=== PATIENT | female | born 1960 | race Caucasian/White ===

== ENCOUNTER → 2016-12-06 | Outpatient (CLI) | payer BC, OTHER ==
[~2016-12-06] MED LIST: /PRAV20TA OR; ATIV1TAB2 OR; DILTIAZEM OR; DYAZ37.5 OR; LEVOTHROID OR; NABU500T OR; NEUR300C OR; NIAS500T2 OR; NITRO PATCH TD; PAIN325T OR; RANO5TAB OR; VICO5TAB OR; VITAMIN D50000 UNT OR
[2016-12-06 07:58] LABS: FREE T4 1.21 NG/DL (0.76-1.46)
== END ==
LOC: M LAB 06:42
PROVIDERS: ATTEND Internal Medicine Endocrinology, Diabetes & Metabolism
DX: E89.0 Postprocedural hypothyroidism (principal)

== ENCOUNTER → 2017-02-14 | Outpatient (REF) | payer OTHER ==
[2017-02-14 13:34] LABS: FREE T4 1.16 NG/DL (0.76-1.46)
== END ==
LOC: M LABDRAWP 12:16
PROVIDERS: ATTEND Nurse Practitioner Family
DX: E89.0 Postprocedural hypothyroidism (principal)

== ENCOUNTER → 2017-02-14 | Outpatient (REF) | payer OTHER ==
[2017-02-14 11:58] LABS: MEAN CORPUSCULAR HEMOGLOBIN 29.5 pg (27.0-33.0); MEAN CORPUSCULAR HGB CONC 32.8 g/dl (32.0-36.5); RED CELL DISTRIBUTION WIDTH 13.2 % (11.5-14.5); RETIC HEMOGLOBIN EQUIVALENT 35.7 pg (24-36); RETICULOCYTE % 1.2 % (0.5-1.5)
[2017-02-14 12:54] LABS: ALBUMIN 4.1 GM/DL (3.2-5.2); ALBUMIN/GLOBULIN RATIO 1.24 (1.00-1.93); ALKALINE PHOSPHATASE 59 U/L (45-117); ALT/SGPT 23 U/L (12-78); ANION GAP 7 MEQ/L (8-16); AST/SGOT 8 U/L (15-37); BILIRUBIN,TOTAL 0.6 MG/DL (0.2-1.0); BLOOD UREA NITROGEN 11 MG/DL (7-18); CALCIUM LEVEL 9.3 MG/DL (8.5-10.1); CARBON DIOXIDE LEVEL 32 MEQ/L (21-32); CHLORIDE LEVEL 103 MEQ/L (98-107); CHOLESTEROL LEVEL 267 MG/DL (<200); CREATININE FOR GFR 0.88 MG/DL (0.55-1.02); FERRITIN 107 NG/ML (8-252); FREE T4 1.15 NG/DL (0.76-1.46); GLOMERULAR FILTRATION RATE > 60.0 (>51); GLUCOSE, FASTING 92 MG/DL (70-105); PERCENT SATURATION 31.9 % (13.2-45.0); POTASSIUM SERUM 4.3 MEQ/L (3.5-5.1); SODIUM LEVEL 142 MEQ/L (136-145); TOTAL IRON BINDING CAPACITY 367 UG/DL (250-450); TOTAL PROTEIN 7.4 GM/DL (6.4-8.2); TRIGLYCERIDES LEVEL 157 MG/DL (<150)
== END ==
LOC: M SFHCPLAZ 08:45
PROVIDERS: ATTEND Family Medicine
DX: D50.9 Iron deficiency anemia, unspecified (principal); I73.9 Peripheral vascular disease, unspecified; I25.9 Chronic ischemic heart disease, unspecified; E89.0 Postprocedural hypothyroidism; E55.9 Vitamin D deficiency, unspecified

== ENCOUNTER → 2017-06-14 | Outpatient (REF) | payer OTHER | LOC: M SFHCPLAZ 08:58 | DX: R59.0 Localized enlarged lymph nodes (principal); Z53.9 Procedure and treatment not carried out, unspecified reason ==

== ENCOUNTER → 2017-06-21 | Outpatient (REF) | payer OTHER ==
[2017-06-21 16:31] LABS: BASO % 0.3 % (0.0-1.0); EOS # 0.1 10^3/uL (0.0-0.50); EOS % 1.2 % (0.0-3.0); HEMATOCRIT 39.8 % (36.0-47.0); HEMOGLOBIN 13.5 g/dl (12.0-16.0); IMMATURE GRANULOCYTE % 0.2 % (0-3.0); LYMPH # 2.4 10^3/uL (1.5-4.5); LYMPH % 36.7 % (24.0-44.0); MEAN CORPUSCULAR HEMOGLOBIN 29.9 pg (27.0-33.0); MEAN CORPUSCULAR HGB CONC 33.9 g/dl (32.0-36.5); MEAN CORPUSCULAR VOLUME 88.2 fl (80.0-96.0); MONO # 0.4 10^3/uL (0.0-0.8); MONO % 5.6 % (0.0-5.0); NEUTROPHILS # 3.7 10^3/uL (1.8-7.7); PLATELET COUNT, AUTOMATED 222 10^3/uL (150-450); RED BLOOD COUNT 4.51 10^6/uL (4.00-5.40); RED CELL DISTRIBUTION WIDTH 12.8 % (11.5-14.5); WHITE BLOOD COUNT 6.6 10^3/uL (4.0-10.0)
[2017-06-21 16:37] LABS: ANION GAP 5 MEQ/L (8-16); BLOOD UREA NITROGEN 14 MG/DL (7-18); CALCIUM LEVEL 8.9 MG/DL (8.5-10.1); CARBON DIOXIDE LEVEL 31 MEQ/L (21-32); CHLORIDE LEVEL 104 MEQ/L (98-107); CREATININE FOR GFR 0.83 MG/DL (0.55-1.30); GLOMERULAR FILTRATION RATE > 60.0 (>51); GLUCOSE, FASTING 103 MG/DL (70-100); POTASSIUM SERUM 3.7 MEQ/L (3.5-5.1); SODIUM LEVEL 140 MEQ/L (136-145)
== END ==
LOC: M LABDRAW1 15:44
DX: R59.0 Localized enlarged lymph nodes (principal)

== ENCOUNTER → 2017-06-28 | Outpatient (CLI) | payer BC, OTHER ==
[~2017-06-28] MED LIST changes: -/PRAV20TA OR; -ATIV1TAB2 OR; -DILTIAZEM OR; -DYAZ37.5 OR; +ISOVUE-370 76% 100ML VIAL (Q9967) As Ordered; -LEVOTHROID OR; -NABU500T OR; -NEUR300C OR; -NIAS500T2 OR; -NITRO PATCH TD; -PAIN325T OR; -RANO5TAB OR; -VICO5TAB OR; -VITAMIN D50000 UNT OR
== END ==
LOC: M RAD 07:29
DX: R59.0 Localized enlarged lymph nodes (principal); D48.7 Neoplasm of uncertain behavior of other specified sites
CPT/HCPCS: Q9967

== ENCOUNTER → 2017-07-17 | Outpatient (CLI) | payer BC, OTHER ==
[2017-07-17 16:21] LABS: INR 0.95; PROTHROMBIN TIME 12.8 SECONDS (12.4-14.5)
[2017-07-17 16:22] LABS: PARTIAL THROMBOPLASTIN TIME 27.4 SECONDS (26.8-37.9)
== END ==
LOC: M LAB 15:38
DX: D37.030 Neoplasm of uncertain behavior of the parotid salivary glands (principal)
CPT/HCPCS: 85610

== ENCOUNTER → 2017-07-22 | Outpatient (CLI) | payer BC, OTHER ==
[~2017-07-22] MED LIST changes: -ISOVUE-370 76% 100ML VIAL (Q9967) As Ordered; +LIDOCAINE 1% MDV 20ML VIAL As Ordered
== END ==
LOC: M RADPRO 13:29
DX: D37.030 Neoplasm of uncertain behavior of the parotid salivary glands (principal); K11.23 Chronic sialoadenitis; Z88.2 Allergy status to sulfonamides; Z79.82 Long term (current) use of aspirin; Z79.899 Other long term (current) drug therapy
CPT/HCPCS: 42400

== ENCOUNTER → 2017-08-24 | Outpatient (REF) | payer OTHER ==
[2017-08-24 19:30] LABS: APPEARANCE, URINE CLOUDY (CLEAR); BACTERIA, URINE AUTO 3+ (NEGATIVE); BILIRUBIN, URINE AUTO NEGATIVE (NEGATIVE); BLOOD, URINE BLOOD 3+ (NEGATIVE); COLOR, URINE RED (YELLOW); GLUCOSE, URINE (UA) AUTO NEGATIVE (NEGATIVE); KETONE, URINE AUTO NEGATIVE (NEGATIVE); LEUKOCYTE ESTERASE, URINE AUTO 3+ (NEGATIVE); NITRITE, URINE AUTO NEGATIVE (NEGATIVE); PROTEIN, URINE AUTO 2+ mg/dL (NEGATIVE); RBC, URINE AUTO TNTC /HPF (0-3); SPECIFIC GRAVITY URINE AUTO 1.012 (1.002-1.035); SQUAMOUS EPITHELIAL CELL UR AU 0 /HPF (0-6); UROBILINOGEN, URINE AUTO 0.2 mg/dL (0.0-2.0); WBC, URINE AUTO TNTC /HPF (0-3)
== END ==
LOC: M LAB REF 09:17
DX: N39.0 Urinary tract infection, site not specified (principal)

== ENCOUNTER → 2017-12-24 | Outpatient (CLI) | payer BC, OTHER ==
[2017-12-24 07:21] LABS: FREE T4 1.13 NG/DL (0.76-1.46)
== END ==
LOC: M LAB 06:13
DX: E89.0 Postprocedural hypothyroidism (principal)
CPT/HCPCS: 84443

== ENCOUNTER → 2018-03-19 | Outpatient (CLI) | payer BC, OTHER | LOC: M RAD 11:48 | DX: K11.9 Disease of salivary gland, unspecified (principal) | CPT/HCPCS: 76536 ==

== ENCOUNTER → 2018-04-11 | Outpatient (REF) | payer OTHER ==
[2018-04-11 12:51] LABS: ERYTHROCYTE SEDIMENTATION RATE 5 mm/hr (0-30)
[2018-04-11 12:54] LABS: C REACTIVE PROTEIN QUANTITATIV < 0.30 MG/DL (0.00-0.30); RHEUMATOID FACTOR QUANT < 10.0 IU/ML (<15.0); TOTAL PROTEIN 7.5 GM/DL (6.4-8.2)
[2018-04-11 12:54] LABS: COMPLEMENT C4 25 MG/DL (10-40)
[2018-04-12 10:49] LABS: CRYOGLOBULINS NEGATIVE (NEGATIVE)
[2018-04-15 11:35] LABS: ALBUMIN 4.62 GM/DL (3.29-5.55); ALBUMIN % 61.6 % (55.8-66.1); ALPHA-1-GLOBULIN % 3.5 % (2.9-4.9); ALPHA-2-GLOBULINS % 10.1 % (7.1-11.8); BETA-1-GLOBULINS % 6.9 % (4.7-7.2); BETA-2-GLOBULINS % 5.1 % (3.2-6.5); GAMMA GLOBULIN % 12.8 % (11.1-18.8)
[2018-04-15 11:36] LABS: ALPHA-1-GLOBULINS 0.26 GM/DL (0.17-0.41); ALPHA-2-GLOBULINS 0.76 GM/DL (0.42-0.99); BETA-1-GLOBULINS 0.52 GM/DL (0.28-0.60); BETA-2-GLOBULINS 0.38 GM/DL (0.19-0.55); GAMMA GLOBULINS 0.96 GM/DL (0.65-1.58)
== END ==
LOC: M SFHCPLAZ 10:37
DX: M35.00 Sjogren syndrome, unspecified (principal)
CPT/HCPCS: 82595

== ENCOUNTER → 2018-09-08 | Outpatient (CLI) | payer BC, OTHER ==
[~2018-09-08] MED LIST changes: +ATIV1TAB2 OR; +DILTIAZEM OR; +DYAZ37.5 OR; +LEVOTHROID OR; -LIDOCAINE 1% MDV 20ML VIAL As Ordered; +NABU500T OR; +NEUR300C OR; +NIAS500T2 OR; +NITRO PATCH TD; +PAIN325T OR; +PRAV1TAB39 OR; +RANO5TAB OR; +VICO5TAB OR; +VITAMIN D50000 UNT OR
[2018-09-08 07:39] LABS: THYROID STIMULATING HORMONE 3.28 uIU/ML (0.358-3.740)
== END ==
LOC: M LAB 06:36
PROVIDERS: ATTEND Nurse Practitioner Family
DX: E89.0 Postprocedural hypothyroidism (principal)

== ENCOUNTER → 2018-09-29 | Outpatient (CLI) | payer BC, OTHER ==
--- NOTE | 2018-09-30 09:59 | REP ---
Clinical: Follow up parotid mass. Technique: Real time vicente scale and color evaluation using linear high frequency transducer. Findings: Hypoechoic 9.4 x 7.5 x 9.1 mm mass in the mid right parotid gland is considerably decreased from prior examination (previously measuring 18 x 14 x 15 mm). A 4.4 x 4.3 x 5.3 millimeter subtle lesion inferior to the larger lesion is again noted and the previously identified small parotid cyst has resolved. The left parotid gland is unchanged with a small 7 x 8 x 4 mm hyperechoic nodule with hypoechoic rim again identified and unchanged possibly representing small lymph node. Impression: 1. Complex hypoechoic lesion in the right parotid gland is decreased in size from prior examination. Remainder of the bilateral nodules remain essentially unchanged while the previously identified small right parotid cyst has resolved. Electronically Signed by Dave Quezada MD 09/30/2018 09:51 A
== END ==
LOC: M RAD 09:44
PROVIDERS: ATTEND Otolaryngology
DX: K11.9 Disease of salivary gland, unspecified (principal)

== ENCOUNTER → 2018-10-03 | Outpatient (CLI) | payer BC, OTHER ==
[2018-10-03 08:50] LABS: ALBUMIN 4.1 GM/DL (3.2-5.2); ALT/SGPT 26 U/L (12-78); BILIRUBIN,TOTAL 0.5 MG/DL (0.2-1.0); BLOOD UREA NITROGEN 16 MG/DL (7-18); CALCIUM LEVEL 9.5 MG/DL (8.5-10.1); CARBON DIOXIDE LEVEL 30 MEQ/L (21-32); CHLORIDE LEVEL 104 MEQ/L (98-107); CHOLESTEROL LEVEL 231 MG/DL (<200); CHOLESTEROL RISK RATIO 4.714 (<5); CREATININE FOR GFR 0.84 MG/DL (0.55-1.30); GLOMERULAR FILTRATION RATE > 60.0 (>51); GLUCOSE, FASTING 91 MG/DL (70-100); HDL CHOLESTEROL 49 MG/DL (>40); LDL CHOLESTEROL 151 MG/DL (<100); NON-HDL-C 182 MG/DL; POTASSIUM SERUM 4.1 MEQ/L (3.5-5.1); SODIUM LEVEL 141 MEQ/L (136-145); TOTAL PROTEIN 6.8 GM/DL (6.4-8.2); TRIGLYCERIDES LEVEL 155 MG/DL (<150)
== END ==
LOC: M LAB 06:55
PROVIDERS: ATTEND Internal Medicine Cardiovascular Disease
DX: I20.8 Other forms of angina pectoris (principal); E78.5 Hyperlipidemia, unspecified

== ENCOUNTER → 2019-04-07 | Outpatient (REF) | payer OTHER ==
[2019-04-07 12:43] LABS: HEMATOCRIT 44.7 % (36.0-47.0); HEMOGLOBIN 14.4 g/dl (12.0-15.5); MEAN CORPUSCULAR HGB CONC 32.2 g/dl (32.0-36.5); MEAN CORPUSCULAR VOLUME 93.1 fl (80.0-96.0); PLATELET COUNT, AUTOMATED 204 10^3/uL (150-450); WHITE BLOOD COUNT 5.8 10^3/uL (4.0-10.0)
[2019-04-07 12:53] LABS: ALBUMIN 4.1 GM/DL (3.2-5.2); ALT/SGPT 34 U/L (12-78); BILIRUBIN,TOTAL 0.5 MG/DL (0.2-1.0); BLOOD UREA NITROGEN 9 MG/DL (7-18); C REACTIVE PROTEIN QUANTITATIV < 0.30 MG/DL (0.00-0.30); CALCIUM LEVEL 8.7 MG/DL (8.5-10.1); CARBON DIOXIDE LEVEL 31 MEQ/L (21-32); CHLORIDE LEVEL 105 MEQ/L (98-107); CHOLESTEROL LEVEL 201 MG/DL (<200); CREATININE FOR GFR 0.75 MG/DL (0.55-1.30); FERRITIN 61 NG/ML (8-252); FREE T4 0.94 NG/DL (0.76-1.46); GLOMERULAR FILTRATION RATE > 60.0 (>51); GLUCOSE, FASTING 93 MG/DL (70-100); HDL CHOLESTEROL 75 MG/DL (>40); IRON (FE) 106 UG/DL (50-170); LDL CHOLESTEROL 97 MG/DL (<100); LIPASE 210 U/L (73-393); NON-HDL-C 126 MG/DL; PERCENT SATURATION 27.2 % (13.2-45.0); POTASSIUM SERUM 3.9 MEQ/L (3.5-5.1); SODIUM LEVEL 141 MEQ/L (136-145); TOTAL IRON BINDING CAPACITY 390 UG/DL (250-450); TOTAL PROTEIN 7.4 GM/DL (6.4-8.2); TRIGLYCERIDES LEVEL 147 MG/DL (<150)
[2019-04-07 13:27] LABS: TOTAL 25(OH) VITAMIN D 21.8 NG/ML (30.0-100.0)
[2019-04-09 00:06] LABS: ANA (HEP2) Positive (.)
== END ==
LOC: M SFHCADAM 09:53
PROVIDERS: ATTEND Family Medicine
DX: D50.9 Iron deficiency anemia, unspecified (principal); E78.2 Mixed hyperlipidemia; E89.0 Postprocedural hypothyroidism; E55.9 Vitamin D deficiency, unspecified; I11.9 Hypertensive heart disease without heart failure; M35.00 Sjogren syndrome, unspecified; R76.8 Other specified abnormal immunological findings in serum

== ENCOUNTER → 2019-04-22 | Outpatient (CLI) | payer BC, OTHER ==
--- NOTE | 2019-04-22 09:32 | REP ---
RIGHT UPPER QUADRANT ULTRASOUND: Real-time sonographic evaluation of the right upper quadrant performed. Gallbladder demonstrates no evidence of intraluminal sludge or calculi, wall thickening, or pericholecystic fluid. There is no intrahepatic or extrahepatic biliary dilatation, common bile duct measuring 6 mm. Liver and pancreas demonstrate homogeneous echotexture with no gross mass. Right kidney demonstrates no hydronephrosis with normal size 11.2 cm in length. Visualized abdominal aorta is normal in caliber. IMPRESSION: Negative right upper quadrant ultrasound. Electronically Signed by Malvin Dahl MD 04/24/2019 05:20 P
== END ==
LOC: M RAD 06:35
PROVIDERS: ATTEND Family Medicine
DX: R10.11 Right upper quadrant pain (principal)

== ENCOUNTER → 2019-07-09 | Outpatient (REF) | payer OTHER ==
[2019-07-09 15:42] LABS: INFLUENZA A AMPLIFICATION NEGATIVE (NEGATIVE); INFLUENZA B AMPLIFICATION NEGATIVE (NEGATIVE)
== END ==
LOC: M LAB REF 14:46
PROVIDERS: ATTEND Physician Assistant
DX: J11.1 Influenza due to unidentified influenza virus with other respiratory manifestations (principal)

== ENCOUNTER 2019-07-15 07:13 | Emergency (ER) | payer BC, OTHER ==
[~2019-07-15] VITALS: Ht 162.6 cm; Wt 72.4 kg
[2019-07-15] MEDS ORDERED: LEVO75TA4 PO (07:31)
[2019-07-15] MEDS ORDERED: ATOR40TA75 PO (07:31)
[2019-07-15] MEDS ORDERED: AMLO5TAB6 PO (07:31)
[2019-07-15] MEDS ORDERED: TRIA37.53 PO (07:31)
[2019-07-15] MEDS ORDERED: ALBU8.5H (07:31)
[2019-07-15] MEDS ORDERED: ASPI81TA85 PO (07:31)
[2019-07-15] MEDS ORDERED: FLUT11IN (07:31)
[2019-07-15] MEDS ORDERED: EZET10TA21 PO (07:31)
[2019-07-15] MEDS ORDERED: RANO500T PO (07:31)
[2019-07-15 09:57] LABS: BASO % 0.4 % (0.0-1.0); EOS # 0.1 10^3/uL (0.0-0.5); EOS % 0.7 % (0.0-3.0); HEMATOCRIT 43.6 % (36.0-47.0); HEMOGLOBIN 14.4 g/dl (12.0-15.5); LYMPH # 2.1 10^3/uL (1.5-5.0); LYMPH % 28.4 % (24.0-44.0); MEAN CORPUSCULAR HEMOGLOBIN 29.1 pg (27.0-33.0); MEAN CORPUSCULAR VOLUME 88.3 fl (80.0-96.0); MONO # 0.5 10^3/uL (0.0-0.8); MONO % 6.1 % (0.0-5.0); NEUTROPHILS # 4.8 10^3/uL (1.5-8.5); NEUTROPHILS % 64.1 % (36.0-66.0); PLATELET COUNT, AUTOMATED 200 10^3/uL (150-450); RED BLOOD COUNT 4.94 10^6/uL (4.00-5.40); WHITE BLOOD COUNT 7.5 10^3/uL (4.0-10.0)
--- NOTE | 2019-07-15 10:08 | REP ---
RENAL ULTRASOUND: Real-time sonographic evaluation of kidneys performed. Kidneys are normal in size and echotexture, right kidney measuring 12.0 x 5.3 x 4.3 cm and left kidney 12.0 x 5.6 x 5.2 cm. No hydronephrosis or renal calculus is seen bilaterally. Urinary bladder is not well distended. Ureteral jets could not be visualized with Doppler color evaluation. IMPRESSION: Essentially negative renal ultrasound. Electronically Signed by Malvin Dahl MD 07/15/2019 03:56 P
[2019-07-15 10:19] LABS: BLOOD UREA NITROGEN 12 MG/DL (7-18); CALCIUM LEVEL 8.9 MG/DL (8.5-10.1); CARBON DIOXIDE LEVEL 30 MEQ/L (21-32); CHLORIDE LEVEL 104 MEQ/L (98-107); GLOMERULAR FILTRATION RATE > 60.0 (>51); GLUCOSE, FASTING 91 MG/DL (70-100); POTASSIUM SERUM 3.7 MEQ/L (3.5-5.1); SODIUM LEVEL 140 MEQ/L (136-145)
[2019-07-15] MEDS ORDERED: CEFD1CAP8 PO (10:56)
[2019-07-15] MEDS ORDERED: CEFDINIR 300 MG CAP (OMNICEF) PO ONE (11:00)
[2019-07-15 11:05] VITALS: BP 123/76
== END 2019-07-15 11:14 | disposition home or self-care (01) ==
LOC: M ED 07:13
DX: N39.0 Urinary tract infection, site not specified (principal); J06.9 Acute upper respiratory infection, unspecified; R31.9 Hematuria, unspecified; G43.909 Migraine, unspecified, not intractable, without status migrainosus; R07.9 Chest pain, unspecified; E78.00 Pure hypercholesterolemia, unspecified; I10 Essential (primary) hypertension; J45.909 Unspecified asthma, uncomplicated; E03.9 Hypothyroidism, unspecified; M54.9 Dorsalgia, unspecified; Z86.2 Personal history of diseases of the blood and blood-forming organs and certain disorders involving the immune mechanism; Z79.82 Long term (current) use of aspirin; Z79.899 Other long term (current) drug therapy; Z88.2 Allergy status to sulfonamides; Z88.8 Allergy status to other drugs, medicaments and biological substances

== ENCOUNTER → 2019-07-18 | Outpatient (CLI) | payer BC, OTHER ==
[~2019-07-18] MED LIST changes: +ALBU8.5H; +AMLO5TAB6 PO; +ASPI81TA85 PO; +ATOR40TA75 PO; +CEFD1CAP8 PO; +EZET10TA21 PO; +FLUT11IN; +LEVO75TA4 PO; +RANO500T PO; +TRIA37.53 PO
[2019-07-18 10:05] LABS: BLOOD UREA NITROGEN 12 MG/DL (7-18); CALCIUM LEVEL 9.1 MG/DL (8.5-10.1); CARBON DIOXIDE LEVEL 30 MEQ/L (21-32); CHLORIDE LEVEL 106 MEQ/L (98-107); CREATININE FOR GFR 0.86 MG/DL (0.55-1.30); GLOMERULAR FILTRATION RATE > 60.0 (>51); GLUCOSE, FASTING 89 MG/DL (70-100); MAGNESIUM LEVEL 2.2 MG/DL (1.8-2.4); SODIUM LEVEL 141 MEQ/L (136-145)
--- NOTE | 2019-07-20 11:12 | HOLTMON ---
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 PT APPEARS TO HAVE IVCD AT BASELINE. DOWN SLOPING ST DEPRESSION NOTED AT TIMES APPROACHING OR EXCEEDING 100MS MAX QTC 480 MS MULTIPLE DIARY ENTRIE ASSOC WITH ECTOPY AND/OR ST ABN. PAGE 28 AND 29 WITH INCORRECTLY LABELED V BIGEMINY (NOT PRESENT). Electronically Signed on 07-20-2019 11:12:38 EDT by Lilo Lee
== END ==
LOC: M LAB 08:59
PROVIDERS: ATTEND Internal Medicine Cardiovascular Disease
DX: R00.2 Palpitations (principal)

== ENCOUNTER → 2019-07-22 | Outpatient (REF) | payer OTHER | LOC: M LAB REF 17:34 | PROVIDERS: ATTEND Physician Assistant | DX: R30.0 Dysuria (principal) ==

== ENCOUNTER → 2019-10-16 | Outpatient (REF) | payer OTHER ==
[2019-10-16 17:02] LABS: BASO % 0.6 % (0.0-1.0); EOS # 0.1 10^3/uL (0.0-0.5); EOS % 1.2 % (0.0-3.0); HEMATOCRIT 43.5 % (36.0-47.0); HEMOGLOBIN 14.4 g/dl (12.0-15.5); LYMPH # 2.6 10^3/uL (1.5-5.0); LYMPH % 38.7 % (24.0-44.0); MEAN CORPUSCULAR HEMOGLOBIN 30.5 pg (27.0-33.0); MEAN CORPUSCULAR HGB CONC 33.1 g/dl (32.0-36.5); MEAN CORPUSCULAR VOLUME 92.2 fl (80.0-96.0); MONO # 0.5 10^3/uL (0.0-0.8); MONO % 6.7 % (0.0-5.0); NEUTROPHILS # 3.6 10^3/uL (1.5-8.5); NEUTROPHILS % 52.5 % (36.0-66.0); PLATELET COUNT, AUTOMATED 237 10^3/uL (150-450); RED BLOOD COUNT 4.72 10^6/uL (4.00-5.40); WHITE BLOOD COUNT 6.8 10^3/uL (4.0-10.0)
[2019-10-16 17:20] LABS: AMORPHOUS SEDIMENT LARGE (NEGATIVE); APPEARANCE, URINE TURBID (CLEAR); BACTERIA, URINE AUTO NEGATIVE (NEGATIVE); BILIRUBIN, URINE AUTO NEGATIVE (NEGATIVE); BLOOD, URINE BLOOD NEGATIVE (NEGATIVE); COLOR, URINE AMBER (YELLOW); GLUCOSE, URINE (UA) AUTO NEGATIVE (NEGATIVE); KETONE, URINE AUTO NEGATIVE (NEGATIVE); LEUKOCYTE ESTERASE, URINE AUTO NEGATIVE (NEGATIVE); MUCUS, URINE LARGE (NEGATIVE); NITRITE, URINE AUTO NEGATIVE (NEGATIVE); PROTEIN, URINE AUTO NEGATIVE (NEGATIVE); RBC, URINE AUTO 1 /HPF (0-3); SPECIFIC GRAVITY URINE AUTO 1.026 (1.002-1.035); SQUAMOUS EPITHELIAL CELL UR AU 0 /HPF (0-6); UROBILINOGEN, URINE AUTO 0.2 mg/dL (0.0-2.0); WBC, URINE AUTO 0 /HPF (0-3)
[2019-10-16 17:30] LABS: ALBUMIN 4.2 GM/DL (3.2-5.2); ALT/SGPT 25 U/L (12-78); BILIRUBIN,TOTAL 0.6 MG/DL (0.2-1.0); BLOOD UREA NITROGEN 14 MG/DL (7-18); C REACTIVE PROTEIN QUANTITATIV < 0.30 MG/DL (0.00-0.30); CALCIUM LEVEL 9.3 MG/DL (8.8-10.2); CARBON DIOXIDE LEVEL 32 MEQ/L (21-32); CHLORIDE LEVEL 104 MEQ/L (98-107); COMPLEMENT C3 121 MG/DL (90-180); COMPLEMENT C4 23 MG/DL (10-40); CREATININE FOR GFR 0.86 MG/DL (0.55-1.30); GLOMERULAR FILTRATION RATE > 60.0 (>45); GLUCOSE, FASTING 90 MG/DL (70-100); POTASSIUM SERUM 3.8 MEQ/L (3.5-5.1); SODIUM LEVEL 142 MEQ/L (136-145); TOTAL PROTEIN 7.4 GM/DL (6.4-8.2)
[2019-10-16 17:37] LABS: TOTAL 25(OH) VITAMIN D 29.5 NG/ML (30.0-100.0)
[2019-10-16 17:44] LABS: ERYTHROCYTE SEDIMENTATION RATE 4 mm/hr (0-30)
== END ==
LOC: M SFHCRHEU 09:08
PROVIDERS: ATTEND Internal Medicine
DX: M35.00 Sjogren syndrome, unspecified (principal)

== ENCOUNTER → 2019-12-01 | Outpatient (CLI) | payer BC ==
[~2019-12-01] MED LIST changes: +AMLO1TAB24 PO; -AMLO5TAB6 PO; -ASPI81TA85 PO; +ASPI81TA86 PO; -RANO500T PO; +RANO500T2 PO
--- NOTE | 2019-12-01 14:44 | REP ---
Clinical: Right mandibular/parotid mass. Technique: Real time vicente scale and color evaluation using linear high frequency transducer. Comparison: 09/29/2018 Findings: Directed ultrasound examination overlying the parotid gland demonstrates small 7 x 5 x 5 mm hypoechoic structure which a slightly decreased in size from prior examination and appears otherwise nonspecific along with small benign incidental 3 x 2 x 2 mm cyst similar to prior examinations. Ultrasound examination of the left side of the face overlying the parotid gland demonstrates small 10 x 7 x 7 mm lymph node. Impression: Small hypoechoic nodule in the right parotid gland slightly decreased in size from prior examination. Finding is otherwise nonspecific. Electronically Signed by Dave Quezada MD 12/01/2019 02:35 P
== END ==
LOC: M PLAIMG 08:11
PROVIDERS: ATTEND Otolaryngology
DX: D11.0 Benign neoplasm of parotid gland (principal)

== ENCOUNTER → 2019-12-30 | Outpatient (CLI) | payer BC, OTHER ==
--- NOTE | 2020-02-05 09:48 | REP ---
SOFT TISSUE HEAD AND NECK ULTRASOUND HISTORY: Benign neoplasm of the parotid gland. SONOGRAPHIC FINDINGS: Sonography 12/01/2019 showed a small hypoechoic nodule in the right parotid gland 7 mm in greatest diameter. Todays right parotid sonography demonstrates a hypoechoic area measuring 12 x 6 x 6 mm in the right parotid gland. This appears similar and subjectively unchanged. There is a tiny cyst anteriorly measuring 2 mm. A lymph node is seen measuring 7 mm in greatest diameter in the right parotid as well. This has an echogenic hilar architecture and a thin cortical margin giving a benign appearance. In the left parotid, there is a 10 x 7 x 5 mm normal appearing lymph node. I note that the deep portions of the parotid glands are not well seen sonographically in this patient. The 17 mm lesion seen in the deep lobe of the right parotid gland on CT study from 07/08/2017 is not visualized. Repeat soft tissue neck CT study with IV contrast may provide better visualization. MTDD
== END ==
LOC: M RAD 15:48
PROVIDERS: ATTEND Otolaryngology
DX: D11.0 Benign neoplasm of parotid gland (principal)

== ENCOUNTER → 2020-04-18 | Outpatient (REF) | payer OTHER ==
[2020-04-18 11:55] LABS: BASO % 0.5 % (0.0-1.0); EOS # 0.1 10^3/uL (0.0-0.5); EOS % 1.7 % (0.0-3.0); HEMATOCRIT 41.2 % (36.0-47.0); HEMOGLOBIN 13.7 g/dl (12.0-15.5); LYMPH # 2.3 10^3/uL (1.5-5.0); LYMPH % 38.9 % (24.0-44.0); MEAN CORPUSCULAR HEMOGLOBIN 29.5 pg (27.0-33.0); MEAN CORPUSCULAR HGB CONC 33.3 g/dl (32.0-36.5); MEAN CORPUSCULAR VOLUME 88.8 fl (80.0-96.0); MONO # 0.4 10^3/uL (0.0-0.8); MONO % 6.4 % (0.0-5.0); NEUTROPHILS # 3.1 10^3/uL (1.5-8.5); NEUTROPHILS % 52.3 % (36.0-66.0); PLATELET COUNT, AUTOMATED 218 10^3/uL (150-450); RED BLOOD COUNT 4.64 10^6/uL (4.00-5.40); WHITE BLOOD COUNT 5.9 10^3/uL (4.0-10.0)
[2020-04-18 12:19] LABS: ALBUMIN 4.1 GM/DL (3.2-5.2); ALT/SGPT 34 U/L (12-78); BILIRUBIN,TOTAL 0.6 MG/DL (0.2-1.0); BLOOD UREA NITROGEN 16 MG/DL (7-18); CARBON DIOXIDE LEVEL 29 MEQ/L (21-32); CHLORIDE LEVEL 103 MEQ/L (98-107); COMPLEMENT C3 116 MG/DL (90-180); COMPLEMENT C4 22 MG/DL (10-40); CPK CREATINE PHOSPHOKINASE 82 U/L (26-192); CREATININE FOR GFR 0.81 MG/DL (0.55-1.30); GLOMERULAR FILTRATION RATE > 60.0 (>45); GLUCOSE, FASTING 90 MG/DL (70-100); POTASSIUM SERUM 3.6 MEQ/L (3.5-5.1); SODIUM LEVEL 138 MEQ/L (136-145); TOTAL PROTEIN 7.4 GM/DL (6.4-8.2)
[2020-04-18 12:27] LABS: TOTAL 25(OH) VITAMIN D 25.6 NG/ML (30.0-100.0)
[2020-04-18 12:39] LABS: ERYTHROCYTE SEDIMENTATION RATE 6 mm/hr (0-30)
== END ==
LOC: M SFHCRHEU 10:29
PROVIDERS: ATTEND Internal Medicine
DX: M35.00 Sjogren syndrome, unspecified (principal); E55.9 Vitamin D deficiency, unspecified

== ENCOUNTER 2020-05-23 12:52 | Emergency (ER) | payer BC, OTHER ==
[~2020-05-23] VITALS: Ht 162.6 cm; Wt 75.5 kg
[2020-05-23 14:38] LABS: BASO % 0.2 % (0.0-1.0); HEMATOCRIT 44.6 % (36.0-47.0); HEMOGLOBIN 14.6 g/dl (12.0-15.5); LYMPH # 0.7 10^3/uL (1.5-5.0); MEAN CORPUSCULAR HEMOGLOBIN 29.1 pg (27.0-33.0); MEAN CORPUSCULAR HGB CONC 32.7 g/dl (32.0-36.5); MEAN CORPUSCULAR VOLUME 88.8 fl (80.0-96.0); MONO # 0.4 10^3/uL (0.0-0.8); MONO % 6.7 % (0.0-5.0); NEUTROPHILS # 4.9 10^3/uL (1.5-8.5); NEUTROPHILS % 81.6 % (36.0-66.0); PLATELET COUNT, AUTOMATED 168 10^3/uL (150-450); RED BLOOD COUNT 5.02 10^6/uL (4.00-5.40)
[2020-05-23 14:52] LABS: INR 0.93; PROTHROMBIN TIME 12.6 SECONDS (12.5-14.3)
[2020-05-23 14:56] LABS: D-DIMER QUANT 309.33 ng/ml (<500)
[2020-05-23 15:17] LABS: ALBUMIN 3.7 GM/DL (3.2-5.2); ALT/SGPT 52 U/L (12-78); BILIRUBIN,TOTAL 0.4 MG/DL (0.2-1.0); BLOOD UREA NITROGEN 14 MG/DL (7-18); C REACTIVE PROTEIN QUANTITATIV 2.57 MG/DL (0.00-0.30); CALCIUM LEVEL 8.8 MG/DL (8.8-10.2); CARBON DIOXIDE LEVEL 26 MEQ/L (21-32); CHLORIDE LEVEL 100 MEQ/L (98-107); CK-MB VALUE MASS < 1.0 NG/ML (<3.6); CPK CREATINE PHOSPHOKINASE 33 U/L (26-192); CREATININE FOR GFR 1.01 MG/DL (0.55-1.30); FERRITIN 148 NG/ML (8-252); GLOMERULAR FILTRATION RATE 59.5 (>45); GLUCOSE, FASTING 169 MG/DL (70-100); LDH LACTATE DEHYDROGENASE 216 U/L (84-246); MAGNESIUM LEVEL 2.3 MG/DL (1.8-2.4); MB/CK RELATIVE INDEX 3.03 (< OR =4); POTASSIUM SERUM 3.8 MEQ/L (3.5-5.1); SODIUM LEVEL 134 MEQ/L (136-145); TOTAL PROTEIN 7.9 GM/DL (6.4-8.2); TROPONIN I < 0.02 NG/ML (< 0.10)
--- NOTE | 2020-05-23 15:54 | REP ---
INDICATION: Coronavirus workup COMPARISON: 07/16/2013 TECHNIQUE: Portable AP view of the chest FINDINGS: The mediastinum and cardiac silhouette are stable and within normal limits for portable technique. No focal consolidation or effusion. However, subtle airspace disease cannot be excluded. Skeletal structures are intact. IMPRESSION: No focal consolidation or effusion. Subtle interstitial airspace disease cannot be excluded <Electronically signed by Dave Quezada > 05/23/20 [id number]
[2020-05-23] MEDS ORDERED: ACETAMINOPHEN 325 MG TAB PO ONE (18:45)
[2020-05-23 23:00] VITALS: BP 121/63
--- NOTE | 2020-05-24 08:52 | ECGEPIP ---
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
== END 2020-05-23 23:12 | disposition home or self-care (01) ==
LOC: M ED 12:52
DX: U07.1 COVID-19 (principal); R06.00 Dyspnea, unspecified; I10 Essential (primary) hypertension; J45.909 Unspecified asthma, uncomplicated; E78.5 Hyperlipidemia, unspecified; M54.5 Low back pain; Z79.82 Long term (current) use of aspirin; Z79.899 Other long term (current) drug therapy; Z88.2 Allergy status to sulfonamides; Z88.8 Allergy status to other drugs, medicaments and biological substances

== ENCOUNTER 2020-05-23 23:20 | Outpatient (CLI) | payer BC, OTHER ==
--- NOTE | 2020-05-23 21:28 | CR.PDOC ---
General Date of Consultation: May 23, 2020 Consultation REASON FOR CONSULTATION/CHIEF COMPLAINT: shortness of breath 2/2 covid. Candidate for monoclonal antibody. 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 Tested positive for COVID-19 in the ER. Saturating 95% on RA. ALLERGIES: Please see below. HOME MEDICATIONS: Please see below. PAST MEDICAL HISTORY: ASTHMA HTN ELEVATED CHOLESTEROL HYPOTHYROIDISM THYROID NODULE RT (COMPLEX CYST, 6 MM, UNCHANGED ON REPEATED US LAST 2014, FOLLOWS DR Jenny LEARY ANNUALLY; US 12/28 WAS UNCHANGED, PLAN REPEAT US IN 2019- ATYPICAL CP (CARDIAC CATH X 3; SEVERAL FALSE + NST)-- DR VALDES IN [facility], HIS DX IS "SYNDROME X"; NORMAL NST AT [facility] 10/29 ("SMALL VESSEL DISEASE" IS HER DX FOR ATYP CP, SEEN AT [facility]) VIT D DEF HX OF ANEMIA (FE DEFIC) + BUSHRA/+SJOGREN'S AB/SSA--[facility] 07/27 RT NECK MASS, PAROTID-- NEG FNAX2 ([facility] 07/28, REPEATED AT [facility] 09/27) PAST SURGICAL HISTORY: 3 C SECTIONS 1980,1985,1994 ECTOPIC 1993 APPENDECTOMY 1973 PARTIAL THYROIDECTOMY 2005 CARPAL TUNNEL 2012 D/C VAGINAL POLYPS CARDIAC CATH X 3 COLONOSCOPY (DR AME BALTAZAR) ? 2004, 2013 EGD (DR ALVAREZ, ); 2013 DR Jovanny BALTAZAR, ESOPHAGEAL DILATATION, NEG BX 2009, 2013 LUMBAR NERVE ROOT DECOMPRESSION AT [facility], DR. CASTILLO 06/23/15 FAMILY HISTORY: FATHER: , OF SUDDEN C[employer] PLAYING HANDBALL, DIAGNOSED WITH UNSPECIFIED HEART DISEASE MOTHER: ALIVE 92 YRS, HTN, HYPERLIPIDEMIA, HYPOTHYROIDISM, HYPERTENSION SIBLINGS: BROTHER-- COPD; SISTER A/W SOCIAL HISTORY: former smoker, quit 10 years ago REVIEW OF SYSTEMS: Short of breath Malaise PHYSICAL EXAMINATION: VITAL SIGNS: please see below General: NAD, comfortable HEENT: PERRLA, EOMI, sclerae clear Neck: supple, normal ROM, no JVD Respiratory: lungs CTAB, no wheeze, no rales, no crackles CVS: RRR, normal S1, S2, no murmurs Abdo: soft, no masses, no hepatosplenomegaly, BS+, no rebound tenderness Extremities: no edema, pulses 2+ MSK: no joint deformities, normal ROM Neuro: no focal neuro deficits, moving all 4 extremities, CN2-12 intact. Strength 5/5 in all 4 extremities. No nystagmus. Psych: calm, cooperative, AAO x 3 LABORATORY DATA: Please see below. 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 Tested positive for COVID-19 in the ER. Saturating 95% on RA. Agreeable for monoclonal antibody bamlanivimab. Risks were explained, all questions were answered. Consent signed. Allergies Coded Allergies: Sulfa (Sulfonamide Antibiotics) (Verified Allergy, Unknown, unknown, ) niacin (Verified Adverse Reaction, Unknown, "caused me to pass out"., 07/15/19) Home Medications Scheduled Amlodipine Besylate (Amlodipine Besylate) 5 Mg Tablet, 1 TAB PO QHS, (Reported) Aspirin (Aspir 81) 81 Mg Tablet.dr, 1 TAB PO DAILY for pain for 30 Days, #30 (Reported) Atorvastatin Calcium (Atorvastatin Calcium) 40 Mg Tablet, 1 TAB PO QPM for 30 Days, #30 (Reported) Cefdinir (Cefdinir) 300 Mg Capsule, 1 CAP PO BID for 10 Days, #19 Ezetimibe (Ezetimibe) 10 Mg Tablet, 1 TAB PO DAILY, (Reported) Levothyroxine Sodium (Levothyroxine Sodium) 75 Mcg Tablet, 1 TAB PO DAILY, (Reported) Ranolazine (Ranolazine ER) 500 Mg Tab.er.12h, 1 TAB PO BID, (Reported) Triamterene/Hydrochlorothiazid (Triamterene-Hctz 37.5-25 mg Cp) 1 Each Capsule, 1 TAB PO DAILY, (Reported) Miscellaneous Medications Acetaminophen (Acetaminophen) 325 Mg Tab, 325 MG OR, (Reported) Albuterol Sulfate (Albuterol Sulfate Hfa) 8.5 Gm Hfa.aer.ad, (Reported) Fluticasone Propionate (Flovent Hfa) 110 Mcg/Act Aer.w.adap, (Reported) PREM TYSON MD May 23, 2020 21:28
[~2020-05-23 23:20] MED LIST changes: +ALBUTEROL 90 MCG/ACT 8GM HFA INHALER INH PRN; +ALBUTEROL SULFATE 2.5 MG/0.5 ML INH NEB SOLN INH PRN; +EPINEPHrine INJ 1 MG/ML 1ML AMP IM PRN; +NS 1,000 ML IV SCH; +diphenhydrAMINE 50MG/ML VIAL (J1200) IV PRN; +methylPREDNISolone 125MG 2ML VIAL IV PRN
[2020-05-23 23:29] VITALS: BP 138/75
[2020-05-24] MEDS ORDERED: BAMLANIVIMAB 700 MG in NS 250 ML IV ONE (00:30)
[2020-05-24 00:32] VITALS: BP 140/75
[2020-05-24 00:34] VITALS: BP 140/75
[2020-05-24 01:02] VITALS: BP 124/75
[2020-05-24 01:36] VITALS: BP 142/73
[2020-05-24 02:07] VITALS: BP 139/77
[2020-05-24 02:36] VITALS: BP 138/65
== END 2020-05-24 02:52 | disposition home or self-care (01) ==
LOC: M OPCLI4 23:20 → M ICU 23:21 → M OPCLI4 05-24 02:52
PROVIDERS: ATTEND Family Medicine
DX: U07.1 COVID-19 (principal); Z88.2 Allergy status to sulfonamides

== ENCOUNTER → 2020-06-06 | Outpatient (CLI) | payer BC, OTHER ==
[~2020-06-06] MED LIST changes: -ALBUTEROL 90 MCG/ACT 8GM HFA INHALER INH PRN; -ALBUTEROL SULFATE 2.5 MG/0.5 ML INH NEB SOLN INH PRN; -EPINEPHrine INJ 1 MG/ML 1ML AMP IM PRN; -NS 1,000 ML IV SCH; -diphenhydrAMINE 50MG/ML VIAL (J1200) IV PRN; -methylPREDNISolone 125MG 2ML VIAL IV PRN
--- NOTE | 2020-06-07 05:52 | REP ---
INDICATION: SHORTNESS OF BREATH COMPARISON: 05/23/2020 TECHNIQUE: PA and lateral. FINDINGS: The mediastinum and cardiac silhouette are normal. Very subtle bilateral lower lobe airspace disease cannot be excluded and should be correlated with auscultation. No discrete focal consolidation. No effusion. No pneumothorax. Skeletal structures intact. IMPRESSION: Very subtle early lower lobe infiltrates suspected. <Electronically signed by Dave Quezada > 06/07/20 0549
== END ==
LOC: M WUC 13:58
PROVIDERS: ATTEND Internal Medicine Pulmonary Disease
DX: R06.02 Shortness of breath (principal)

== ENCOUNTER → 2020-07-04 | Outpatient (CLI) | payer BC, OTHER ==
--- NOTE | 2020-07-04 18:04 | REP ---
INDICATION: MODERATE PERSISTENT ASTHMA COMPARISON: 06/06/2020 as well as other prior exams. TECHNIQUE: PA/Lateral FINDINGS: Lungs: Clear, no infiltrate. The previously identified bibasilar infiltrates appear to have resolved. Heart: Normal in size. Mediastinum: Mediastinal silhouette unremarkable. Pleural angles: Unremarkable.. Bones and soft tissues: There are degenerative changes of the spine without compression deformity. IMPRESSION: No acute pulmonary disease. The previously identified bibasilar infiltrates appear to have resolved. <Electronically signed by Malvin Dahl > 07/04/20 [id number]
== END ==
LOC: M WUC 15:48
PROVIDERS: ATTEND Internal Medicine Pulmonary Disease
DX: J45.40 Moderate persistent asthma, uncomplicated (principal)

== ENCOUNTER → 2020-07-11 | Outpatient (CLI) | payer BC, OTHER ==
--- NOTE | 2020-07-11 13:33 | REP ---
INDICATION: JOSE OF PAROTID GLANDS COMPARISON: 12/30/2019, 12/01/2019 TECHNIQUE: Dahl scale and color evaluation of the bilateral parathyroid glands using the linear high frequency transducer. FINDINGS: The right parathyroid gland measures approximately 3.5 x 2.5 x 0.8 cm within 8 x 4 x 6 mm adjacent normal appearing lymph node. The previously noted intraparotid nodule is no longer visible by current ultrasound. The left parathyroid gland appears relatively normal and measures 4.5 x 3.7 x 0.9 cm with an adjacent lymph node measuring approximately 8 x 5 x 6 mm. IMPRESSION: No obvious parathyroid lesion identified by current examination. The parathyroid gland is limited in evaluation by ultrasound and CT may be more beneficial if there is continued concern for mass lesion or pathology. <Electronically signed by Dave Quezada > 07/11/20 [id number]
== END ==
LOC: M RAD 10:30
PROVIDERS: ATTEND Otolaryngology
DX: D37.030 Neoplasm of uncertain behavior of the parotid salivary glands (principal)

== ENCOUNTER 2020-08-02 09:52 | Emergency (ER) | payer BC, OTHER ==
[~2020-08-02] VITALS: Ht 162.6 cm; Wt 75.0 kg
[2020-08-02] MEDS ORDERED: VITA500C24 PO (11:04)
[2020-08-02] MEDS ORDERED: ALIG4CAP PO (11:04)
[2020-08-02] MEDS ORDERED: ISOVUE-370 76% 100ML VIAL As Ordered ONE (12:14)
--- NOTE | 2020-08-02 13:13 | REP ---
INDICATION: difficulty swallowing known parotid lesion. COMPARISON: Comparison CT studies are from June 28, 2017, August 03, 2013, and January 18, 2009.. TECHNIQUE: Helical scanning is acquired following the intravenous injection of 75 mL of Isovue 370. Coronal and sagittal MPR images are provided. 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 The 2018 prior study showed a 17 x 17 mm enhancing lesion in the right parotid gland posteriorly and a little medially. This appears to have either been removed or regressed. There is a subtle 5 x 6 mm area of slightly increased density where the prior study showed the intraparotid mass. No other parotid neoplasm is appreciated on either side. Submandibular glands are normal and symmetric. There are normal appearing anterior cervical lymph nodes bilaterally. No suprahyoid or infrahyoid adenopathy is appreciated. The left thyroid lobe appears absent question surgical resection. There appears to be a surgical clip in place on the left. The right thyroid lobe is normal in appearance and homogeneous. No vascular abnormality is observed. Visualized intracranial and intraorbital soft tissues are unremarkable. Deep facial soft tissues show no evidence of mass. Hypopharyngeal, glottic and subglottic airway are intact. Epiglottis is normal in appearance. IMPRESSION: Previously noted right parotid gland the mass has regressed or been resected in the interval since the prior study in 2018. The left thyroid lobe appears to have been resected. No neck mass or adenopathy seen. No abnormal fluid collection noted. <Electronically signed by Sonido Salazar > 08/02/20 [id number]
[2020-08-02 14:00] VITALS: BP 127/81
[2020-08-02] MEDS ORDERED: NAPR-837 PO (14:01)
[2020-08-02] MEDS ORDERED: CEFD300CAP PO (14:01)
== END 2020-08-02 14:10 | disposition home or self-care (01) ==
LOC: M ED 09:52
DX: J02.9 Acute pharyngitis, unspecified (principal); I10 Essential (primary) hypertension; J45.909 Unspecified asthma, uncomplicated; Z86.16 Personal history of COVID-19; Z88.2 Allergy status to sulfonamides; Z79.899 Other long term (current) drug therapy
CPT/HCPCS: 36415; 70491; 80047; 87880; 99284; Q9967

== ENCOUNTER → 2020-10-14 | Outpatient (REF) | payer OTHER ==
[~2020-10-14] MED LIST changes: +ALIG4CAP PO; +CEFD300CAP PO; +NAPR-837 PO; +VITA500C24 PO
[2020-10-14 11:11] LABS: APPEARANCE, URINE CLEAR (CLEAR); BACTERIA, URINE AUTO 1+ (NEGATIVE); BILIRUBIN, URINE AUTO NEGATIVE (NEGATIVE); BLOOD, URINE BLOOD NEGATIVE (NEGATIVE); COLOR, URINE YELLOW (YELLOW); GLUCOSE, URINE (UA) AUTO NEGATIVE (NEGATIVE); KETONE, URINE AUTO NEGATIVE (NEGATIVE); LEUKOCYTE ESTERASE, URINE AUTO 1+ (NEGATIVE); NITRITE, URINE AUTO NEGATIVE (NEGATIVE); PROTEIN, URINE AUTO NEGATIVE (NEGATIVE); RBC, URINE AUTO 1 /HPF (0-3); SPECIFIC GRAVITY URINE AUTO 1.017 (1.002-1.035); SQUAMOUS EPITHELIAL CELL UR AU 0 /HPF (0-6); UROBILINOGEN, URINE AUTO 0.2 mg/dL (0.0-2.0); WBC, URINE AUTO 2 /HPF (0-3)
[2020-10-14 11:13] LABS: BASO % 0.5 % (0.0-1.0); EOS # 0.1 10^3/uL (0.0-0.5); EOS % 1.2 % (0.0-3.0); HEMOGLOBIN 14.4 g/dl (12.0-15.5); LYMPH # 1.8 10^3/uL (1.5-5.0); LYMPH % 28.1 % (24.0-44.0); MEAN CORPUSCULAR HEMOGLOBIN 30.3 pg (27.0-33.0); MEAN CORPUSCULAR HGB CONC 33.5 g/dl (32.0-36.5); MEAN CORPUSCULAR VOLUME 90.5 fl (80.0-96.0); MONO # 0.4 10^3/uL (0.0-0.8); MONO % 6.9 % (2.0-8.0); PLATELET COUNT, AUTOMATED 211 10^3/uL (150-450); RED BLOOD COUNT 4.75 10^6/uL (4.00-5.40); WHITE BLOOD COUNT 6.4 10^3/uL (4.0-10.0)
[2020-10-14 11:39] LABS: TOTAL PROTEIN,RANDOM URINE 13.1 MG/DL (0.0-12.0)
[2020-10-14 11:43] LABS: ERYTHROCYTE SEDIMENTATION RATE 3 mm/hr (0-30)
[2020-10-14 11:50] LABS: ALBUMIN 4.3 GM/DL (3.2-5.2); ALT/SGPT 25 U/L (12-78); BILIRUBIN,TOTAL 0.5 MG/DL (0.2-1.0); BLOOD UREA NITROGEN 17 MG/DL (7-18); CALCIUM LEVEL 9.2 MG/DL (8.8-10.2); CARBON DIOXIDE LEVEL 29 MEQ/L (21-32); CHLORIDE LEVEL 105 MEQ/L (98-107); COMPLEMENT C3 107 MG/DL (90-180); COMPLEMENT C4 24 MG/DL (10-40); CREATININE FOR GFR 0.83 MG/DL (0.55-1.30); GLOMERULAR FILTRATION RATE > 60.0 (>45); GLUCOSE, FASTING 103 MG/DL (70-100); IMMUNOGLOBULIN G 943 MG/DL (681-1648); POTASSIUM SERUM 3.9 MEQ/L (3.5-5.1); SODIUM LEVEL 140 MEQ/L (136-145); TOTAL 25(OH) VITAMIN D 32.9 NG/ML (30.0-100.0); TOTAL PROTEIN 7.5 GM/DL (6.4-8.2)
[2020-10-17 13:07] LABS: ANTI DS-DNA AB Negative (Negative)
[2020-10-17 13:17] LABS: ALBUMIN % 62.4 % (55.8-66.1); ALPHA-1-GLOBULIN % 3.5 % (2.9-4.9); ALPHA-2-GLOBULINS % 10.1 % (7.1-11.8)
[2020-10-17 13:18] LABS: ALBUMIN 4.68 GM/DL (3.29-5.55); ALPHA-1-GLOBULINS 0.26 GM/DL (0.17-0.41); ALPHA-2-GLOBULINS 0.76 GM/DL (0.42-0.99); BETA-1-GLOBULINS 0.48 GM/DL (0.28-0.60); BETA-1-GLOBULINS % 6.4 % (4.7-7.2); BETA-2-GLOBULINS 0.38 GM/DL (0.19-0.55); BETA-2-GLOBULINS % 5.1 % (3.2-6.5); GAMMA GLOBULIN % 12.5 % (11.1-18.8); GAMMA GLOBULINS 0.94 GM/DL (0.65-1.58)
== END ==
LOC: M SFHCRHEU 07:54
PROVIDERS: ATTEND Internal Medicine Rheumatology
DX: M35.00 Sjogren syndrome, unspecified (principal); E55.9 Vitamin D deficiency, unspecified

== ENCOUNTER → 2020-12-12 | Outpatient (CLI) | payer BC, OTHER ==
[~2020-12-12] MED LIST changes: -CEFD1CAP8 PO; +CEFD300C41 PO
== END ==
LOC: M ADAMS 15:18
PROVIDERS: ATTEND Physician Assistant
DX: R07.81 Pleurodynia (principal)

== ENCOUNTER → 2021-01-18 | Outpatient (CLI) | payer BC, OTHER ==
[~2021-01-18] MED LIST changes: +CEFD1CAP8 PO; -CEFD300C41 PO
[2021-01-18 07:45] LABS: CHOLESTEROL RISK RATIO 3.307 (<5)
== END ==
LOC: M LAB 06:27
PROVIDERS: ATTEND Internal Medicine Cardiovascular Disease
DX: E78.00 Pure hypercholesterolemia, unspecified (principal)

== ENCOUNTER → 2021-01-20 | Outpatient (CLI) | payer BC, OTHER ==
[2021-01-20 08:31] LABS: HEMATOCRIT 42.6 % (36.0-47.0); HEMOGLOBIN 14.3 g/dl (12.0-15.5); MEAN CORPUSCULAR HEMOGLOBIN 30.1 pg (27.0-33.0); MEAN CORPUSCULAR HGB CONC 33.6 g/dl (32.0-36.5); MEAN CORPUSCULAR VOLUME 89.7 fl (80.0-96.0); PLATELET COUNT, AUTOMATED 190 10^3/uL (150-450); RED BLOOD COUNT 4.75 10^6/uL (4.00-5.40); WHITE BLOOD COUNT 5.8 10^3/uL (4.0-10.0)
[2021-01-20 09:00] LABS: ALBUMIN 3.7 GM/DL (3.2-5.2); ALT/SGPT 25 U/L (12-78); BILIRUBIN,TOTAL 0.7 MG/DL (0.2-1.0); BLOOD UREA NITROGEN 14 MG/DL (7-18); CALCIUM LEVEL 9.2 MG/DL (8.8-10.2); CARBON DIOXIDE LEVEL 31 MEQ/L (21-32); CHLORIDE LEVEL 106 MEQ/L (98-107); CREATININE FOR GFR 0.82 MG/DL (0.55-1.30); FREE T4 1.07 NG/DL (0.76-1.46); GLOMERULAR FILTRATION RATE > 60.0 (>45); GLUCOSE, FASTING 96 MG/DL (70-100); LIPASE 144 U/L (73-393); SODIUM LEVEL 141 MEQ/L (136-145)
== END ==
LOC: M LAB 07:39
PROVIDERS: ATTEND Family Medicine
DX: R53.82 Chronic fatigue, unspecified (principal); R77.8 Other specified abnormalities of plasma proteins; E89.0 Postprocedural hypothyroidism; R10.10 Upper abdominal pain, unspecified; I11.9 Hypertensive heart disease without heart failure

== ENCOUNTER 2021-05-03 14:31 | Emergency (ER) | payer BC, OTHER ==
[~2021-05-03] VITALS: Ht 162.6 cm; Wt 78.2 kg
[2021-05-03 15:47] LABS: BASO % 0.3 % (0.0-1.0); EOS # 0.2 10^3/uL (0.0-0.5); EOS % 2.8 % (0.0-3.0); HEMATOCRIT 43.9 % (36.0-47.0); HEMOGLOBIN 14.5 g/dl (12.0-15.5); LYMPH # 1.4 10^3/uL (1.5-5.0); LYMPH % 23.7 % (24.0-44.0); MEAN CORPUSCULAR HEMOGLOBIN 28.9 pg (27.0-33.0); MEAN CORPUSCULAR VOLUME 87.6 fl (80.0-96.0); MONO # 0.5 10^3/uL (0.0-0.8); MONO % 7.6 % (2.0-8.0); NEUTROPHILS # 3.9 10^3/uL (1.5-8.5); NEUTROPHILS % 64.9 % (36.0-66.0); PLATELET COUNT, AUTOMATED 192 10^3/uL (150-450); RED BLOOD COUNT 5.01 10^6/uL (4.00-5.40)
--- NOTE | 2021-05-03 16:20 | ECGEPIP ---
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
[2021-05-03 16:27] LABS: ALBUMIN 3.6 GM/DL (3.2-5.2); ALT/SGPT 24 U/L (12-78); BILIRUBIN,DIRECT 0.1 MG/DL (0.0-0.2); BILIRUBIN,TOTAL 0.4 MG/DL (0.2-1.0); LIPASE 109 U/L (73-393)
[2021-05-03] MEDS: GI COCKTAIL 50ML BTL(HYOSCYAMINE/MAALOX/LIDOCAINE VISCOUS)(1:3:1) PO ONE (17:37)
[2021-05-03] MEDS: SUCRALFATE 1 GM TAB PO ONE (17:37)
[2021-05-03] MEDS: NS 1,000 ML IV ONE (17:43)
[2021-05-03] MEDS: ONDANSETRON 4MG/2ML VIAL IV ONE (17:44)
[2021-05-03 18:02] LABS: BLOOD UREA NITROGEN 9 MG/DL (7-18); CALCIUM LEVEL 8.8 MG/DL (8.8-10.2); CARBON DIOXIDE LEVEL 29 MEQ/L (21-32); CHLORIDE LEVEL 106 MEQ/L (98-107); CREATININE FOR GFR 0.87 MG/DL (0.55-1.30); GLOMERULAR FILTRATION RATE > 60.0 (>45); GLUCOSE, FASTING 105 MG/DL (70-100); POTASSIUM SERUM 4.4 MEQ/L (3.5-5.1); SODIUM LEVEL 140 MEQ/L (136-145)
[2021-05-03] MEDS ORDERED: ISOVUE-370 76% 100ML VIAL As Ordered ONE (18:24)
--- NOTE | 2021-05-03 19:05 | REP ---
INDICATION: lower chest pain. COMPARISON: 12/12/2020. TECHNIQUE: Single portable AP view of the chest was performed. FINDINGS: There is no acute infiltrate or pulmonary edema. Lungs are clear. The heart is not significantly enlarged. The mediastinal silhouette is unremarkable. The visualized osseous structures are intact. IMPRESSION: No acute pulmonary disease. <Electronically signed by Malvin Dahl > 05/03/21 0345
--- NOTE | 2021-05-03 19:58 | REPVR ---
PROCEDURE INFORMATION: Exam: CT Abdomen And Pelvis With Contrast Exam date and time: 05/03/2021 6:25 PM Age: 60 years old Clinical indication: Other: Epigastric abd pain wraps to back, HX microvasc disease TECHNIQUE: Imaging protocol: Computed tomography of the abdomen and pelvis with contrast. Radiation optimization: All CT scans at this facility use at least one of these dose optimization techniques: automated exposure control; mA and/or kV adjustment per patient size (includes targeted exams where dose is matched to clinical indication); or iterative reconstruction. Contrast material: ISOVUE 370; Contrast volume: 100 ml; Contrast route: INTRAVENOUS (IV); COMPARISON: CT ABD PELVIS W/O CONTRAST 05/17/2015 7:01 PM FINDINGS: Lungs: No suspicious mass or airspace process in the visualized lung bases. Liver: Liver appears normal with no focal abnormality. Gallbladder and bile ducts: Gallbladder is present and shows no evidence of gallstone. Pancreas: Pancreas appears normal. No focal mass or peripancreatic inflammation. Spleen: Spleen appears homogeneous without focal mass. Adrenal glands: Adrenal glands are normal in appearance. Kidneys and ureters: Kidneys appear normal, with no stone, solid mass or hydronephrosis. Stomach and bowel: No evidence of small bowel obstruction. Diverticular changes are present within the colon without inflammation. No concerning asymmetry or abnormality at the gastroesophageal junction. Appendix: Appendix is not seen. No RLQ inflammation to suggest appendicitis. Intraperitoneal space: No pneumoperitoneum. Vasculature: Atherosclerotic change present in the aorta, without aneurysm. Main portal and splenic veins enhance normally. Lymph nodes: Small, nonspecific mesenteric lymph nodes are present. Urinary bladder: Urinary bladder appears normal. Reproductive: Female reproductive organs appear unremarkable. Bones/joints: Bony structures are normal except for lumbar spine degenerative disc changes. Soft tissues: Unremarkable. IMPRESSION: No acute or concerning focal abnormality to explain epigastric pain. Electronically signed by: Stan Hager On 05/03/2021 19:58:08 PM
[2021-05-03 21:42] VITALS: BP 120/85
== END 2021-05-03 21:44 | disposition home or self-care (01) ==
LOC: M ED 14:31
DX: R10.13 Epigastric pain (principal); I10 Essential (primary) hypertension; E78.5 Hyperlipidemia, unspecified; J45.909 Unspecified asthma, uncomplicated; E03.9 Hypothyroidism, unspecified; Z79.82 Long term (current) use of aspirin; Z79.899 Other long term (current) drug therapy; Z88.2 Allergy status to sulfonamides; Z88.8 Allergy status to other drugs, medicaments and biological substances
CPT/HCPCS: 71045; 74177; 80048; 80076; 83690; 84484; 85025; 93005; 96361; 96374; 99284; J2405; Q9967

== ENCOUNTER → 2021-07-24 | Outpatient (CLI) | payer BC, OTHER ==
[~2021-07-24] MED LIST changes: -CEFD1CAP8 PO; +CEFD300C41 PO
== END ==
LOC: M RAD 10:31
PROVIDERS: ATTEND Otolaryngology
DX: D37.030 Neoplasm of uncertain behavior of the parotid salivary glands (principal)

== ENCOUNTER → 2021-07-27 | Outpatient (REF) | payer OTHER | LOC: M LAB REF 09:15 | PROVIDERS: ATTEND Physician Assistant | DX: N39.0 Urinary tract infection, site not specified (principal) ==

== ENCOUNTER → 2021-08-25 | Outpatient (REF) | payer OTHER ==
[~2021-08-25] MED LIST changes: -TRIA37.53 PO; +TRIA37.577 PO
== END ==
LOC: M LAB REF 12:15
PROVIDERS: ATTEND Physician Assistant
DX: U07.1 COVID-19 (principal)

== ENCOUNTER → 2021-10-05 | Outpatient (REF) | payer OTHER ==
[~2021-10-05] MED LIST changes: +TRIA37.53 PO; -TRIA37.577 PO
[2021-10-05 16:58] LABS: APPEARANCE, URINE CLEAR (CLEAR); BACTERIA, URINE AUTO NEGATIVE (NEGATIVE); BILIRUBIN, URINE AUTO NEGATIVE (NEGATIVE); BLOOD, URINE BLOOD NEGATIVE (NEGATIVE); COLOR, URINE YELLOW (YELLOW); GLUCOSE, URINE (UA) AUTO NEGATIVE (NEGATIVE); KETONE, URINE AUTO NEGATIVE (NEGATIVE); LEUKOCYTE ESTERASE, URINE AUTO NEGATIVE (NEGATIVE); NITRITE, URINE AUTO NEGATIVE (NEGATIVE); PROTEIN, URINE AUTO NEGATIVE (NEGATIVE); RBC, URINE AUTO 0 /HPF (0-3); SPECIFIC GRAVITY URINE AUTO 1.011 (1.002-1.035); SQUAMOUS EPITHELIAL CELL UR AU 0 /HPF (0-6); UROBILINOGEN, URINE AUTO 0.2 mg/dL (0.0-2.0); WBC, URINE AUTO 0 /HPF (0-3)
[2021-10-05 17:27] LABS: TOTAL PROTEIN,RANDOM URINE 10.7 MG/DL (0.0-12.0)
[2021-10-05 17:32] LABS: ALBUMIN 4.2 GM/DL (3.2-5.2); ALT/SGPT 24 U/L (12-78); BILIRUBIN,TOTAL 0.3 MG/DL (0.2-1.0); BLOOD UREA NITROGEN 13 MG/DL (7-18); CALCIUM LEVEL 9.8 MG/DL (8.8-10.2); CARBON DIOXIDE LEVEL 30 MEQ/L (21-32); CHLORIDE LEVEL 104 MEQ/L (98-107); COMPLEMENT C3 114 MG/DL (90-180); COMPLEMENT C4 26 MG/DL (10-40); CREATININE FOR GFR 0.86 MG/DL (0.55-1.30); GLOMERULAR FILTRATION RATE > 60.0 (>45); GLUCOSE, FASTING 90 MG/DL (70-100); POTASSIUM SERUM 3.8 MEQ/L (3.5-5.1); SODIUM LEVEL 141 MEQ/L (136-145); TOTAL PROTEIN 7.2 GM/DL (6.4-8.2)
[2021-10-05 17:36] LABS: BASO % 0.7 % (0.0-1.0); EOS # 0.1 10^3/uL (0.0-0.5); EOS % 1.3 % (0.0-3.0); HEMATOCRIT 41.6 % (36.0-47.0); HEMOGLOBIN 13.4 g/dl (12.0-15.5); LYMPH # 2.5 10^3/uL (1.5-5.0); LYMPH % 42.1 % (24.0-44.0); MEAN CORPUSCULAR HEMOGLOBIN 28.9 pg (27.0-33.0); MEAN CORPUSCULAR HGB CONC 32.2 g/dl (32.0-36.5); MEAN CORPUSCULAR VOLUME 89.8 fl (80.0-96.0); MONO # 0.5 10^3/uL (0.0-0.8); MONO % 7.7 % (2.0-8.0); NEUTROPHILS # 2.9 10^3/uL (1.5-8.5); NEUTROPHILS % 47.9 % (36.0-66.0); PLATELET COUNT, AUTOMATED 220 10^3/uL (150-450); RED BLOOD COUNT 4.63 10^6/uL (4.00-5.40)
[2021-10-05 17:41] LABS: TOTAL 25(OH) VITAMIN D 21.9 NG/ML (30.0-100.0)
[2021-10-05 18:12] LABS: ERYTHROCYTE SEDIMENTATION RATE 5 mm/hr (0-30)
== END ==
LOC: M SFHCRHEU 11:54
PROVIDERS: ATTEND Internal Medicine Rheumatology
DX: M35.00 Sjogren syndrome, unspecified (principal); E55.9 Vitamin D deficiency, unspecified; M89.49 Other hypertrophic osteoarthropathy, multiple sites

== ENCOUNTER → 2022-01-18 | Outpatient (CLI) | payer OTHER ==
[~2022-01-18] MED LIST changes: -TRIA37.53 PO; +TRIA37.577 PO
== END ==
LOC: M RAD 06:26
PROVIDERS: ATTEND Otolaryngology
DX: D37.030 Neoplasm of uncertain behavior of the parotid salivary glands (principal)

== ENCOUNTER → 2022-01-25 | Outpatient (CLI) | payer OTHER | LOC: M SOG 08:14 | PROVIDERS: ATTEND Orthopaedic Surgery Hand Surgery | DX: M25.542 Pain in joints of left hand (principal) ==

== ENCOUNTER → 2022-02-28 | Outpatient (REF) | payer OTHER ==
[2022-02-28 18:17] LABS: HEMATOCRIT 39.1 % (36.0-47.0); HEMOGLOBIN 13.1 g/dl (12.0-15.5); MEAN CORPUSCULAR HGB CONC 33.5 g/dl (32.0-36.5); MEAN CORPUSCULAR VOLUME 89.5 fl (80.0-96.0); PLATELET COUNT, AUTOMATED 147 10^3/uL (150-450); RED BLOOD COUNT 4.37 10^6/uL (4.00-5.40); WHITE BLOOD COUNT 6.7 10^3/uL (4.0-10.0)
[2022-02-28 19:05] LABS: ALT/SGPT 20 U/L (12-78); BILIRUBIN,TOTAL 0.4 MG/DL (0.2-1.0); BLOOD UREA NITROGEN 18 MG/DL (7-18); CALCIUM LEVEL 9.2 MG/DL (8.8-10.2); CARBON DIOXIDE LEVEL 29 MEQ/L (21-32); CHLORIDE LEVEL 103 MEQ/L (98-107); CHOLESTEROL LEVEL 230 MG/DL (<200); CHOLESTEROL RISK RATIO 4.035 (<5); CREATININE FOR GFR 1.27 MG/DL (0.55-1.30); FREE T4 1.07 NG/DL (0.76-1.46); GLOMERULAR FILTRATION RATE 45.4 (>45); GLUCOSE, FASTING 95 MG/DL (70-100); HDL CHOLESTEROL 57 MG/DL (>40); LDL CHOLESTEROL 139 MG/DL (<100); NON-HDL-C 173 MG/DL; POTASSIUM SERUM 4.4 MEQ/L (3.5-5.1); SODIUM LEVEL 138 MEQ/L (136-145); TOTAL PROTEIN 7.2 GM/DL (6.4-8.2); TRIGLYCERIDES LEVEL 171 MG/DL (<150)
[2022-02-28 19:20] LABS: VITAMIN B12 LEVEL 398 PG/ML (247-911)
[2022-02-28 19:21] LABS: HEMOGLOBIN A1c 5.5 %
[2022-03-01 13:38] LABS: ALBUMIN 4.54 GM/DL (3.29-5.55); ALPHA-1-GLOBULIN % 3.4 % (2.9-4.9); ALPHA-1-GLOBULINS 0.24 GM/DL (0.17-0.41); ALPHA-2-GLOBULINS 0.74 GM/DL (0.42-0.99); ALPHA-2-GLOBULINS % 10.3 % (7.1-11.8); BETA-1-GLOBULINS 0.45 GM/DL (0.28-0.60); BETA-1-GLOBULINS % 6.3 % (4.7-7.2); BETA-2-GLOBULINS 0.35 GM/DL (0.19-0.55); BETA-2-GLOBULINS % 4.8 % (3.2-6.5); GAMMA GLOBULIN % 12.2 % (11.1-18.8); GAMMA GLOBULINS 0.88 GM/DL (0.65-1.58)
[2022-03-01 13:43] LABS: IMMUNOTYPING SERUM IGG ABNORMAL (NORMAL); IMMUNOTYPING SERUM KAPPA ABNORMAL (NORMAL)
[2022-03-02 08:09] LABS: FOLATE 14.8 ng/mL (>3.0)
== END ==
LOC: M SFHCADAM 15:20
PROVIDERS: ATTEND Family Medicine
DX: E89.0 Postprocedural hypothyroidism (principal); E78.2 Mixed hyperlipidemia; R53.82 Chronic fatigue, unspecified; R77.8 Other specified abnormalities of plasma proteins; I11.9 Hypertensive heart disease without heart failure; Z13.1 Encounter for screening for diabetes mellitus

== ENCOUNTER → 2022-03-09 | Outpatient (CLI) | payer BC, OTHER | LOC: M SOG 08:03 | PROVIDERS: ATTEND Orthopaedic Surgery | DX: M54.2 Cervicalgia (principal); M47.812 Spondylosis without myelopathy or radiculopathy, cervical region; M46.02 Spinal enthesopathy, cervical region ==

== ENCOUNTER → 2022-05-11 | Outpatient (CLI) | payer BC, OTHER | LOC: M RAD 09:38 | PROVIDERS: ATTEND Internal Medicine Gastroenterology | DX: R10.11 Right upper quadrant pain (principal); F45.8 Other somatoform disorders; K44.9 Diaphragmatic hernia without obstruction or gangrene; K57.30 Diverticulosis of large intestine without perforation or abscess without bleeding ==

== ENCOUNTER → 2022-06-19 | Outpatient (CLI) | payer BC, OTHER | LOC: M RAD 11:56 | PROVIDERS: ATTEND Internal Medicine Gastroenterology | DX: R10.11 Right upper quadrant pain (principal); F45.8 Other somatoform disorders; K44.9 Diaphragmatic hernia without obstruction or gangrene; K57.30 Diverticulosis of large intestine without perforation or abscess without bleeding; K82.8 Other specified diseases of gallbladder | CPT/HCPCS: 78227; A9537 ==

== ENCOUNTER → 2022-09-12 | Outpatient (REF) | payer OTHER | LOC: M SFHCADAM 11:12 | PROVIDERS: ATTEND Family Medicine | DX: I11.9 Hypertensive heart disease without heart failure (principal); E89.0 Postprocedural hypothyroidism; R53.82 Chronic fatigue, unspecified; K82.9 Disease of gallbladder, unspecified; E78.2 Mixed hyperlipidemia; Z13.1 Encounter for screening for diabetes mellitus; R77.8 Other specified abnormalities of plasma proteins; Z53.9 Procedure and treatment not carried out, unspecified reason ==

== ENCOUNTER → 2022-10-22 | Outpatient (CLI) | payer BC, OTHER ==
[~2022-10-22] MED LIST changes: -FLUT11IN; +FLUT12AE6
== END ==
LOC: M WUC 10:39
PROVIDERS: ATTEND Nurse Practitioner Family
DX: M79.631 Pain in right forearm (principal)

== ENCOUNTER → 2023-04-20 | Outpatient (CLI) | payer BC, OTHER ==
[~2023-04-20] MED LIST changes: +CEFD1CAP9 PO; -CEFD300C41 PO; +DOXY100T27; +IBUP80TA; +OMEP-173; +PRED10TA2; +SUCR1TAB56
[2023-04-22 13:40] LABS: URINE TOTAL PROTEIN 9.2 MG/DL (0-14)
== END ==
LOC: M LAB REF 07:15
PROVIDERS: ATTEND Internal Medicine Hematology & Oncology
DX: M35.00 Sjogren syndrome, unspecified (principal)

== ENCOUNTER → 2023-04-25 | Outpatient (CLI) | payer BC, OTHER | LOC: M WUC 08:17 | PROVIDERS: ATTEND Internal Medicine Pulmonary Disease | DX: J45.40 Moderate persistent asthma, uncomplicated (principal) ==

== ENCOUNTER → 2023-07-18 | Outpatient (CLI) | payer BC, OTHER ==
[~2023-07-18] MED LIST changes: +ECOT81TA5 PO; +FLUTISP; -IBUP80TA; +IBUP80TA PO; -OMEP-173; +OMEP-173 PO; -SUCR1TAB56; +SUCR1TAB56 PO
[2023-07-18 08:49] LABS: CHOLESTEROL RISK RATIO 3.63 (<5); HDL CHOLESTEROL 48.4 MG/DL (>40); NON-HDL-C 127.6 MG/DL
== END ==
LOC: M LAB 06:18
PROVIDERS: ATTEND Family Medicine
DX: E78.2 Mixed hyperlipidemia (principal)

== ENCOUNTER → 2023-07-23 | Outpatient (REF) | payer OTHER | LOC: M SFHCADAM 09:03 | PROVIDERS: ATTEND Family Medicine | DX: R77.8 Other specified abnormalities of plasma proteins (principal); Z13.1 Encounter for screening for diabetes mellitus; E78.2 Mixed hyperlipidemia; E89.0 Postprocedural hypothyroidism ==

== ENCOUNTER → 2023-09-06 | Outpatient (CLI) | payer BC ==
[2023-09-06 07:07] LABS: BASO % 0.6 % (0.0-1.0); EOS # 0.1 10^3/uL (0.0-0.5); EOS % 2.1 % (0.0-3.0); HEMATOCRIT 42.1 % (36.0-47.0); HEMOGLOBIN 14.2 g/dl (12.0-15.5); LYMPH # 2.4 10^3/uL (1.5-5.0); LYMPH % 39.1 % (24.0-44.0); MEAN CORPUSCULAR HEMOGLOBIN 29.7 pg (27.0-33.0); MEAN CORPUSCULAR HGB CONC 33.7 g/dl (32.0-36.5); MEAN CORPUSCULAR VOLUME 88.1 fl (80.0-96.0); MONO # 0.4 10^3/uL (0.0-0.8); MONO % 5.6 % (2.0-8.0); NEUTROPHILS # 3.3 10^3/uL (1.5-8.5); NEUTROPHILS % 52.4 % (36.0-66.0); PLATELET COUNT, AUTOMATED 202 10^3/uL (150-450); RED BLOOD COUNT 4.78 10^6/uL (4.00-5.40); WHITE BLOOD COUNT 6.2 10^3/uL (4.0-10.0)
[2023-09-06 07:16] LABS: ERYTHROCYTE SEDIMENTATION RATE 6 mm/hr (0-30)
[2023-09-06 07:34] LABS: C REACTIVE PROTEIN QUANTITATIV < 0.40 MG/DL (<1.0)
[2023-09-06 07:35] LABS: COMPLEMENT C3 128.5 MG/DL (90.0-170.0); COMPLEMENT C4 24.7 MG/DL (12-36)
[2023-09-06 07:36] LABS: APPEARANCE, URINE CLEAR (CLEAR); BACTERIA, URINE AUTO NEGATIVE (NEGATIVE); BILIRUBIN, URINE AUTO NEGATIVE (NEGATIVE); BLOOD, URINE BLOOD NEGATIVE (NEGATIVE); COLOR, URINE YELLOW (YELLOW); GLUCOSE, URINE (UA) AUTO NEGATIVE (NEGATIVE); KETONE, URINE AUTO NEGATIVE (NEGATIVE); LEUKOCYTE ESTERASE, URINE AUTO 1+ (NEGATIVE); MUCUS, URINE SMALL (NEGATIVE); NITRITE, URINE AUTO NEGATIVE (NEGATIVE); PROTEIN, URINE AUTO 1+ mg/dL (NEGATIVE); RBC, URINE AUTO 3 /HPF (0-3); SPECIFIC GRAVITY URINE AUTO 1.023 (1.002-1.035); SQUAMOUS EPITHELIAL CELL UR AU 0 /HPF (0-6); UROBILINOGEN, URINE AUTO 0.2 mg/dL (0.0-2.0); WBC, URINE AUTO 4 /HPF (0-3)
[2023-09-06 07:45] LABS: ALBUMIN 3.9 G/DL (3.2-5.2); ALKALINE PHOSPHATASE 66 U/L (46-116); ALT/SGPT 20 U/L (7.0-40); AST/SGOT 11 U/L (<34); BILIRUBIN,TOTAL 0.5 MG/DL (0.3-1.2); BLOOD UREA NITROGEN 12 MG/DL (9-23); CALCIUM LEVEL 9.3 MG/DL (8.3-10.6); CARBON DIOXIDE LEVEL 33 MMOL/L (20-31); CHLORIDE LEVEL 104 MMOL/L (98-107); CREATININE FOR GFR 0.85 MG/DL (0.55-1.30); GLOMERULAR FILTRATION RATE > 60.0 (>45); GLUCOSE, FASTING 105 MG/DL (74-106); POTASSIUM SERUM 4.1 MMOL/L (3.5-5.1); SODIUM LEVEL 141 MMOL/L (136-145); TOTAL PROTEIN 6.8 G/DL (5.7-8.2)
[2023-09-06 07:56] LABS: TOTAL PROTEIN,RANDOM URINE 24.7 MG/DL (0.0-14.0)
== END ==
LOC: M LAB 06:13
PROVIDERS: ATTEND Internal Medicine Rheumatology
DX: M35.00 Sjogren syndrome, unspecified (principal); E55.9 Vitamin D deficiency, unspecified; M89.49 Other hypertrophic osteoarthropathy, multiple sites; R76.8 Other specified abnormal immunological findings in serum; D11.0 Benign neoplasm of parotid gland

== ENCOUNTER → 2024-02-19 | Outpatient (CLI) | payer BC ==
[2024-02-19 07:38] LABS: CHOLESTEROL RISK RATIO 3.77 (<5); HDL CHOLESTEROL 61.8 MG/DL (>40); LDL CHOLESTEROL 144.4 MG/DL (<100); NON-HDL-C 171.2 MG/DL
[2024-02-19 07:41] LABS: FREE T4 1.36 NG/DL (0.89-1.76); THYROID STIMULATING HORMONE 2.049 uIU/ML (0.55-4.78)
[2024-02-19 09:24] LABS: HEMOGLOBIN A1c 5.5 % (4.0-6.0)
== END ==
LOC: M LAB 06:38
PROVIDERS: ATTEND Family Medicine
DX: Z13.1 Encounter for screening for diabetes mellitus (principal); E78.2 Mixed hyperlipidemia; E89.0 Postprocedural hypothyroidism

== ENCOUNTER → 2024-02-19 | Outpatient (CLI) | payer BC ==
[2024-02-19 07:21] LABS: BASO % 0.5 % (0.0-1.0); EOS # 0.1 10^3/uL (0.0-0.5); HEMATOCRIT 41.6 % (36.0-47.0); HEMOGLOBIN 13.9 g/dl (12.0-15.5); LYMPH # 2.4 10^3/uL (1.5-5.0); LYMPH % 38.9 % (24.0-44.0); MEAN CORPUSCULAR HEMOGLOBIN 29.8 pg (27.0-33.0); MEAN CORPUSCULAR HGB CONC 33.4 g/dl (32.0-36.5); MEAN CORPUSCULAR VOLUME 89.1 fl (80.0-96.0); MONO # 0.4 10^3/uL (0.0-0.8); MONO % 6.2 % (2.0-8.0); NEUTROPHILS # 3.2 10^3/uL (1.5-8.5); NEUTROPHILS % 52.1 % (36.0-66.0); PLATELET COUNT, AUTOMATED 206 10^3/uL (150-450); RED BLOOD COUNT 4.67 10^6/uL (4.00-5.40); WHITE BLOOD COUNT 6.1 10^3/uL (4.0-10.0)
[2024-02-19 07:33] LABS: APPEARANCE, URINE CLEAR (CLEAR); BACTERIA, URINE AUTO NEGATIVE (NEGATIVE); BILIRUBIN, URINE AUTO NEGATIVE (NEGATIVE); BLOOD, URINE BLOOD NEGATIVE (NEGATIVE); COLOR, URINE YELLOW (YELLOW); GLUCOSE, URINE (UA) AUTO NEGATIVE (NEGATIVE); KETONE, URINE AUTO NEGATIVE (NEGATIVE); LEUKOCYTE ESTERASE, URINE AUTO NEGATIVE (NEGATIVE); MUCUS, URINE SMALL (NEGATIVE); NITRITE, URINE AUTO NEGATIVE (NEGATIVE); PROTEIN, URINE AUTO NEGATIVE (NEGATIVE); RBC, URINE AUTO 0 /HPF (0-3); SPECIFIC GRAVITY URINE AUTO 1.026 (1.002-1.035); SQUAMOUS EPITHELIAL CELL UR AU 0 /HPF (0-6); TOTAL PROTEIN,RANDOM URINE 23.8 MG/DL (0.0-14.0); UROBILINOGEN, URINE AUTO 0.2 mg/dL (0.0-2.0); WBC, URINE AUTO 0 /HPF (0-3)
[2024-02-19 07:36] LABS: C REACTIVE PROTEIN QUANTITATIV < 0.40 MG/DL (<1.0)
[2024-02-19 07:40] LABS: ALBUMIN 4.1 G/DL (3.2-5.2); ALKALINE PHOSPHATASE 67 U/L (46-116); ALT/SGPT 20 U/L (7.0-40); AST/SGOT 9 U/L (<34); BILIRUBIN,TOTAL 0.7 MG/DL (0.3-1.2); BLOOD UREA NITROGEN 15 MG/DL (9-23); CALCIUM LEVEL 9.6 MG/DL (8.3-10.6); CARBON DIOXIDE LEVEL 30 MMOL/L (20-31); CHLORIDE LEVEL 106 MMOL/L (98-107); COMPLEMENT C3 135.6 MG/DL (90.0-170.0); COMPLEMENT C4 28.1 MG/DL (12-36); CREATININE FOR GFR 0.84 MG/DL (0.55-1.30); GLOMERULAR FILTRATION RATE > 60.0 (>45); GLUCOSE, FASTING 100 MG/DL (74-106); POTASSIUM SERUM 3.7 MMOL/L (3.5-5.1); SODIUM LEVEL 142 MMOL/L (136-145); TOTAL PROTEIN 7.4 G/DL (5.7-8.2)
[2024-02-19 07:40] LABS: CREATININE,RANDOM URINE 238.8 MG/DL
[2024-02-19 07:41] LABS: ERYTHROCYTE SEDIMENTATION RATE 8 mm/hr (0-30)
[2024-02-22 16:47] LABS: COMPLEMENT TOTAL (CH50) > 60 U/mL (31-60)
== END ==
LOC: M LAB 06:37
PROVIDERS: ATTEND Internal Medicine Rheumatology
DX: M35.00 Sjogren syndrome, unspecified (principal); E55.9 Vitamin D deficiency, unspecified; M89.49 Other hypertrophic osteoarthropathy, multiple sites; D11.0 Benign neoplasm of parotid gland

== ENCOUNTER → 2024-03-19 | Outpatient (CLI) | payer BC ==
[2024-03-19 09:34] LABS: ALBUMIN 4.3 G/DL (3.2-5.2); BILIRUBIN,DIRECT 0.1 MG/DL (<0.4); BILIRUBIN,TOTAL 0.7 MG/DL (0.3-1.2); TOTAL PROTEIN 7.9 G/DL (5.7-8.2)
== END ==
LOC: M RAD 07:31
PROVIDERS: ATTEND Nurse Practitioner Family
DX: K76.0 Fatty (change of) liver, not elsewhere classified (principal); R10.11 Right upper quadrant pain; R94.8 Abnormal results of function studies of other organs and systems; Z90.49 Acquired absence of other specified parts of digestive tract

== ENCOUNTER → 2024-04-20 | Outpatient (CLI) | payer BC | LOC: M RAD 06:42 | PROVIDERS: ATTEND Otolaryngology | DX: K11.20 Sialoadenitis, unspecified (principal) ==

== ENCOUNTER → 2024-07-13 | Outpatient (CLI) | payer BC ==
[~2024-07-13] MED LIST changes: -ALIG4CAP PO; +ALIG4CAP3 PO; +AMLO2.5T3; +PREDOPD
== END ==
LOC: M SLEEP HO 11:35
PROVIDERS: ATTEND Internal Medicine Pulmonary Disease
DX: G47.33 Obstructive sleep apnea (adult) (pediatric) (principal)

== ENCOUNTER → 2024-09-07 | Outpatient (REF) | payer OTHER ==
[2024-09-07 13:12] LABS: BASO % 0.4 % (0.0-1.0); EOS # 0.2 10^3/uL (0.0-0.5); EOS % 2.3 % (0.0-3.0); HEMATOCRIT 39.5 % (36.0-47.0); HEMOGLOBIN 13.2 g/dl (12.0-15.5); LYMPH # 3.2 10^3/uL (1.5-5.0); LYMPH % 43.5 % (24.0-44.0); MEAN CORPUSCULAR HEMOGLOBIN 29.5 pg (27.0-33.0); MEAN CORPUSCULAR HGB CONC 33.4 g/dl (32.0-36.5); MEAN CORPUSCULAR VOLUME 88.2 fl (80.0-96.0); MONO # 0.5 10^3/uL (0.0-0.8); MONO % 6.9 % (2.0-8.0); NEUTROPHILS # 3.4 10^3/uL (1.5-8.5); NEUTROPHILS % 46.6 % (36.0-66.0); PLATELET COUNT, AUTOMATED 213 10^3/uL (150-450); RED BLOOD COUNT 4.48 10^6/uL (4.00-5.40); WHITE BLOOD COUNT 7.3 10^3/uL (4.0-10.0)
== END ==
LOC: M LABWUC 12:28
PROVIDERS: ATTEND Nurse Practitioner Family
DX: R59.0 Localized enlarged lymph nodes (principal); G50.1 Atypical facial pain; K04.7 Periapical abscess without sinus

== ENCOUNTER → 2024-09-17 | Outpatient (CLI) | payer MEDICARE, BC ==
[2024-09-17 07:39] LABS: HEMATOCRIT 42.4 % (36.0-47.0); HEMOGLOBIN 14.3 g/dl (12.0-15.5); MEAN CORPUSCULAR HEMOGLOBIN 29.7 pg (27.0-33.0); MEAN CORPUSCULAR HGB CONC 33.7 g/dl (32.0-36.5); MEAN CORPUSCULAR VOLUME 88.1 fl (80.0-96.0); PLATELET COUNT, AUTOMATED 214 10^3/uL (150-450); RED BLOOD COUNT 4.81 10^6/uL (4.00-5.40); WHITE BLOOD COUNT 6.1 10^3/uL (4.0-10.0)
[2024-09-17 07:54] LABS: BILIRUBIN,TOTAL 0.6 MG/DL (0.3-1.2); CALCIUM LEVEL 9.8 MG/DL (8.3-10.6); CHOLESTEROL RISK RATIO 5.43 (<5); CREATININE FOR GFR 0.9 MG/DL (0.55-1.30); HDL CHOLESTEROL 54.5 MG/DL (>40); LDL CHOLESTEROL 204.5 MG/DL (<100); NON-HDL-C 241.5 MG/DL; POTASSIUM SERUM 4.2 MMOL/L (3.5-5.1); TOTAL PROTEIN 7.2 G/DL (5.7-8.2)
[2024-09-17 07:55] LABS: THYROID STIMULATING HORMONE 2.818 uIU/ML (0.55-4.78)
[2024-09-17 07:56] LABS: FREE T4 1.33 NG/DL (0.89-1.76)
== END ==
LOC: M LAB 06:36
PROVIDERS: ATTEND Family Medicine
DX: D17.9 Benign lipomatous neoplasm, unspecified (principal); E89.0 Postprocedural hypothyroidism; E78.2 Mixed hyperlipidemia

== ENCOUNTER → 2025-01-12 | Outpatient (REF) | payer MEDICARE, BC ==
[~2025-01-12] MED LIST changes: +REPA140I2
[2025-01-12 18:40] LABS: ALT/SGPT 21.0 U/L (7.0-40); AST/SGOT 22.0 U/L (<34); CALCIUM LEVEL 9.7 MG/DL (8.3-10.6); CARBON DIOXIDE LEVEL 30.0 MMOL/L (20-31); CHLORIDE LEVEL 102.0 MMOL/L (98-107); CREATININE FOR GFR 0.87 MG/DL (0.55-1.30); GLOMERULAR FILTRATION RATE 73.9 (>45); POTASSIUM SERUM 4.4 MMOL/L (3.5-5.1); SODIUM LEVEL 141.0 MMOL/L (136-145)
[2025-01-12 18:43] LABS: BASO # 0.0 10^3/uL (0.0-0.2); BASO % 0.5 % (0.0-1.0); EOS # 0.2 10^3/uL (0.0-0.5); EOS % 2.0 % (0.0-3.0); LYMPH # 3.5 10^3/uL (1.5-5.0); LYMPH % 45.7 % (24.0-44.0); MONO # 0.6 10^3/uL (0.0-0.8); MONO % 7.6 % (2.0-8.0); NEUTROPHILS # 3.4 10^3/uL (1.5-8.5); NEUTROPHILS % 43.9 % (36.0-66.0); PLATELET COUNT, AUTOMATED 243 10^3/uL (150-450)
== END ==
LOC: M SFHCADAM 14:12
PROVIDERS: ATTEND Family Medicine
DX: Z01.818 Encounter for other preprocedural examination (principal)

== ENCOUNTER → 2025-03-04 | Outpatient (CLI) | payer MEDICARE, BC ==
[~2025-03-04] MED LIST changes: -EZET10TA21 PO; +EZET10TA57 PO
== END ==
LOC: M WHC 14:16
PROVIDERS: ATTEND Obstetrics & Gynecology
DX: Z12.31 Encounter for screening mammogram for malignant neoplasm of breast (principal); R14.0 Abdominal distension (gaseous); R93.89 Abnormal findings on diagnostic imaging of other specified body structures; R10.20 Pelvic and perineal pain unspecified side; R92.323 Mammographic fibroglandular density, bilateral breasts

== ENCOUNTER → 2025-03-31 | Outpatient (CLI) | payer MEDICARE, BC ==
[2025-03-31 07:57] LABS: ALT/SGPT 25.0 U/L (7.0-40); AST/SGOT 17.0 U/L (<34); CALCIUM LEVEL 9.1 MG/DL (8.3-10.6); CARBON DIOXIDE LEVEL 32.0 MMOL/L (20-31); CHLORIDE LEVEL 102.0 MMOL/L (98-107); CHOLESTEROL LEVEL 207.0 MG/DL (<200); CHOLESTEROL RISK RATIO 3.12 (<5); CREATININE FOR GFR 0.82 MG/DL (0.55-1.30); GLOMERULAR FILTRATION RATE 79.3 (>45); LDL CHOLESTEROL 104.0 MG/DL (<100); NON-HDL-C 140.8 MG/DL; POTASSIUM SERUM 4.1 MMOL/L (3.5-5.1); SODIUM LEVEL 144.0 MMOL/L (136-145); TRIGLYCERIDES LEVEL 184.0 MG/DL (<150)
== END ==
LOC: M LAB 06:41
PROVIDERS: ATTEND Internal Medicine Cardiovascular Disease
DX: E78.00 Pure hypercholesterolemia, unspecified (principal)

== ENCOUNTER → 2025-03-31 | Outpatient (CLI) | payer MEDICARE, BC ==
[2025-03-31 07:26] LABS: BASO # 0.0 10^3/uL (0.0-0.2); BASO % 0.5 % (0.0-1.0); EOS # 0.2 10^3/uL (0.0-0.5); EOS % 2.4 % (0.0-3.0); LYMPH # 2.3 10^3/uL (1.5-5.0); LYMPH % 36.5 % (24.0-44.0); MONO # 0.4 10^3/uL (0.0-0.8); MONO % 6.9 % (2.0-8.0); NEUTROPHILS # 3.3 10^3/uL (1.5-8.5); NEUTROPHILS % 53.4 % (36.0-66.0); PLATELET COUNT, AUTOMATED 226 10^3/uL (150-450)
[2025-03-31 07:43] LABS: APPEARANCE, URINE CLEAR (CLEAR); BACTERIA, URINE AUTO NEGATIVE (NEGATIVE); BILIRUBIN, URINE AUTO NEGATIVE (NEGATIVE); BLOOD, URINE BLOOD NEGATIVE (NEGATIVE); GLUCOSE, URINE (UA) AUTO NEGATIVE (NEGATIVE); KETONE, URINE AUTO NEGATIVE (NEGATIVE); LEUKOCYTE ESTERASE, URINE AUTO NEGATIVE (NEGATIVE); NITRITE, URINE AUTO NEGATIVE (NEGATIVE); PROTEIN, URINE AUTO NEGATIVE (NEGATIVE); RBC, URINE AUTO 1 /HPF (0-3); SPECIFIC GRAVITY URINE AUTO 1.018 (1.002-1.035); SQUAMOUS EPITHELIAL CELL UR AU 0 /HPF (0-6); UROBILINOGEN, URINE AUTO 0.2 mg/dL (0.0-2.0); WBC, URINE AUTO 0 /HPF (0-3)
[2025-03-31 07:52] LABS: TOTAL PROTEIN,RANDOM URINE 28.4 MG/DL (0.0-14.0)
[2025-03-31 07:56] LABS: COMPLEMENT C4 29.6 MG/DL (12-36)
[2025-03-31 07:57] LABS: ALT/SGPT 25 U/L (7.0-40); AST/SGOT 16 U/L (<34); C REACTIVE PROTEIN QUANTITATIV < 0.50 MG/DL (<1.0); CALCIUM LEVEL 9.0 MG/DL (8.3-10.6); CARBON DIOXIDE LEVEL 32 MMOL/L (20-31); CHLORIDE LEVEL 101 MMOL/L (98-107); CREATININE FOR GFR 0.78 MG/DL (0.55-1.30); GLOMERULAR FILTRATION RATE 84.2 (>45); POTASSIUM SERUM 4.0 MMOL/L (3.5-5.1); SODIUM LEVEL 141 MMOL/L (136-145)
== END ==
LOC: M LAB 06:50
PROVIDERS: ATTEND Internal Medicine Rheumatology
DX: M35.00 Sjogren syndrome, unspecified (principal); D11.0 Benign neoplasm of parotid gland; E55.9 Vitamin D deficiency, unspecified; M89.49 Other hypertrophic osteoarthropathy, multiple sites; R76.89 Other specified abnormal immunological findings in serum; E78.00 Pure hypercholesterolemia, unspecified